=== PATIENT | female | born 1970 | race American Indian/Alaskan Native ===

== ENCOUNTER 2018-12-04 20:09 | Inpatient (IN) | payer MEDICAID ==
[2018-12-04] MEDS ORDERED: ZOFRAN IV ONE (20:36)
[2018-12-04] MEDS ORDERED: SUBLIMAZE IV ONE (20:36)
--- NOTE | 2018-12-04 20:39 | Emergency Department Report ---
ED Abdominal Pain HPI - General Chief Complaint: Abdominal Pain Stated Complaint: ABDOMINAL PAIN Time Seen by Provider: 12/04/18 20:31 Source: patient, EMS Mode of arrival: Stretcher Limitations: Physical Limitation - History of Present Illness Initial Comments: Patient is 48-year-old female with history of asthma, bipolar and pancreatitis secondary to alcohol. Patient presented to the ER complaining of upper abdominal pain that radiated to her back. Pain is sharp in nature. Pain associated with nausea and vomiting. Pain is 10 out of 10. Patient denied any diarrhea, fever or dysuria. MD Complaint: abdominal pain -: This morning Location: epigastric Radiation: back Migration to: no migration Severity scale (0 -10): 10 Quality: sharp Consistency: constant - Related Data Home Medications Medication Instructions Recorded Confirmed Last Taken ALPRAZolam [Xanax TAB] 2 mg PO BID 04/25/18 04/25/18 Unknown Carisoprodol [Soma] 350 mg PO BID 04/25/18 04/25/18 Unknown Allergies Allergy/AdvReac Type Severity Reaction Status Date / Time No Known Allergies Allergy Unverified 12/30/14 00:27 ED Review of Systems ROS: Stated complaint: ABDOMINAL PAIN Other details as noted in HPI Comment: All other systems reviewed and negative Constitutional: denies: chills, fever Respiratory: denies: cough, orthopnea, shortness of breath, SOB with exertion, SOB at rest Gastrointestinal: abdominal pain, nausea, vomiting. denies: diarrhea, co nstipation, hematemesis, melena, hematochezia Musculoskeletal: denies: back pain Skin: denies: rash, lesions Neurological: denies: headache, weakness Psychiatric: denies: as per HPI ED Past Medical Hx - Past Medical History Hx Psychiatric Treatment: Yes (bipolar) Hx Asthma: Yes Hx COPD: No Additional medical history: pancreatitis - Surgical History Additional Surgical History: x 3. left shoulder surgery - Social History Smoking Status: Current Every Day Smoker Substance Use Type: Alcohol - Medications Home Medications: Home Medications Medication Instructions Recorded Confirmed Last Taken Type ALPRAZolam [Xanax TAB] 2 mg PO BID 04/25/18 04/25/18 Unknown History Carisoprodol [Soma] 350 mg PO BID 04/25/18 04/25/18 Unknown History ED Physical Exam - General Limitations: Physical Limitation General appearance: alert, in distress (secondary to pain) - Head Head exam: Present: atraumatic, normocephalic, normal inspection - Eye Eye exam: Present: normal appearance, PERRL - ENT ENT exam: Present: normal exam, normal orophraynx, mucous membranes moist - Neck Neck exam: Present: normal inspection. Absent: tenderness, meningismus - Respiratory Respiratory exam: Present: normal lung sounds bilaterally - Cardiovascular Cardiovascular Exam: Present: regular rate, normal rhythm, normal heart sounds - GI/Abdominal GI/Abdominal exam: Present: soft, tenderness, normal bowel sounds. Absent: distended, guarding, rebound, rigid, organomegaly, mass, bruit, pulsatile mass, hernia - Back Exam Back exam: Present: normal inspection, full ROM. Absent: tenderness, CVA tenderness (R), CVA tenderness (L), muscle spasm, paraspinal tenderness, vertebral tenderness - Neurological Exam Neurological exam: Present: alert, oriented X3, CN II-XII intact, normal gait - Skin Skin exam: Present: warm, intact, normal color ED Course Vital Signs 12/04/18 12/04/18 12/04/18 20:14 21:00 22:00 Pulse Rate 98 H 94 H 106 H Respiratory 20 25 H 19 Rate Blood Pressure 171/126 157/115 161/105 O2 Sat by Pulse 98 98 99 Oximetry 12/04/18 22:15 Pulse Rate Respiratory 18 Rate Blood Pressure O2 Sat by Pulse Oximetry ED Medical Decision Making - Lab Data Result diagrams: 12/04/18 20:18 12/04/18 20:18 - Radiology Data Radiology results: image reviewed interpreted by me: X-ray abdominal series is negative for acute finding. - Medical Decision Making Patient is 48-year-old female with history of asthma, bipolar and pancreatitis secondary to alcohol. Patient presented to the ER complaining of upper abdominal pain that radiated to her back. Pain is sharp in nature. Pain associated with nausea and vomiting. Pain is 10 out of 10. Patient denied any diarrhea, fever or dysuria. I discussed the patient is Raza Barnes agreed to admit the patient to medical service. Critical care attestation.: If time is entered above; I have spent that time in minutes in the direct care of this critically ill patient, excluding procedure time. ED Disposition Clinical Impression: Acute pancreatitis, Abdominal pain Disposition: OP ADMIT IP TO THIS HOSP Is pt being admited?: Yes Condition: Stable Instructions: Abdominal Pain (ED)
[2018-12-04] MEDS ORDERED: SUBLIMAZE ONE (20:42)
[2018-12-04] MEDS ORDERED: MORPHINE IV ONE (21:11)
[2018-12-04 21:28] LABS: Basophils % (Auto) 0.1 % (0.0-1.8); Eosinophils # (Auto) 0.1 K/mm3 (0.0-0.4); Eosinophils % (Auto) 0.8 % (0.0-4.3); Hematocrit 40.2 % (30.3-42.9); Hemoglobin 13.3 gm/dl (10.1-14.3); Lymphocytes # (Auto) 1.6 K/mm3 (1.2-5.4); Lymphocytes % (Auto) 20.7 % (13.4-35.0); Mean Corpuscular HGB Conc 33 % (30-34); Mean Corpuscular Volume 89 fl (79-97); Monocytes # (Auto) 0.7 K/mm3 (0.0-0.8); Monocytes % (Auto) 8.6 % (0.0-7.3); Platelet Count 241 K/mm3 (140-440); Red Blood Count 4.49 M/mm3 (3.65-5.03)
[2018-12-04 21:45] LABS: Alanine Aminotransferase 18 units/L (7-56); BUN/Creatinine Ratio 13; Blood Urea Nitrogen 4 mg/dL (7-17); Calcium 8.6 mg/dL (8.4-10.2); Hemolysis Index 8
[2018-12-04] MEDS ORDERED: TORADOL IV ONE (22:03)
[2018-12-04] MEDS ORDERED: ZOFRAN IV PRN (23:27)
[2018-12-04] MEDS ORDERED: TYLENOL PO PRN (23:27)
[2018-12-04] MEDS ORDERED: MORPHINE IV PRN (23:27)
--- NOTE | 2018-12-04 23:27 | XRay Report ---
PROCEDURE: XR ABD SERIES W CXR 1V TECHNIQUE: Abdominal series complete, including supine and upright AP views of the abdomen and front al chest. HISTORY: abdominal pain COMPARISONS: None . FINDINGS: Intestinal gas is distributed predominantly in nondistended colon and rectum. There are no abnormal c alcifications or foreign bodies. No evidence of organomegaly is noted. A 1.5 cm irregular nodular den sity noted in the right lower hemithorax most likely represents a nipple shadow. Otherwise bilateral lungs and pleural spaces are clear. Cardiac size is within normal limits. IMPRESSION: Nonspecific intestinal gas pattern. A small right hemithorax nodular density most likely represents a nipple shadow. A follow-up chest x- ray with nipple markers is recommended. This document is electronically signed by Tani Castillo MD., December 04 2018 11:25:16 PM ET
--- NOTE | 2018-12-04 23:29 | History and Physical Report ---
History of Present Illness Date of examination: 12/04/18 History of present illness: 48-year-old woman with a history of bipolar, pancreatitis comes emergency room with complaints of abdominal pain. Pain is into epigastric, left upper quadrant which she described as a hurting pain, radiating to the back, intensity 8/10, constant, relieved with pain medication. Admits to nausea vomiting Review of systems Constitutional: no weight loss, chills, fever Ears, eyes, nose, mouth and throat: no nasal congestion, no nasal discharge, no sinus pressure, no vision change, no red eye. Neck: No neck pain or rigidity. Cardiovascular: no palpitations, chest pain Respiratory: no cough, shortness of breath Gastrointestinal: no hematochezia, +abdominal pain Genitourinary : no frequency , no hematuria Musculoskeletal: no joint swelling or muscle ache Integumentary: no rash, no pruritis Neurological: no parathesias, no focal weakness Endocrine: no cold or heat intolerance, no polyuria or polydipsia Hematologic/Lymphatic: no easy bruising, no easy bleeding, no gland swelling Allergic/Immunologic: no urticaria, no angioedema. PAST MEDICAL HISTORY:bipolar, pancreatitis PAST SURGICAL HISTORY: 2, left shoulder SOCIAL HISTORY+ alcohol, drugs, tobacco FAMILY HISTORY: Hypertension Medications and Allergies Allergies Allergy/AdvReac Type Severity Reaction Status Date / Time No Known Allergies Allergy Unverified 12/30/14 00:27 Home Medications Medication Instructions Recorded Confirmed Last Taken Type ALPRAZolam [Xanax TAB] 2 mg PO BID 04/25/18 12/05/18 Unknown History Carisoprodol [Soma] 350 mg PO BID 04/25/18 12/05/18 Unknown History Oxycodone HCl/Acetaminophen 1 tab PO DAILY PRN 12/05/18 12/05/18 Unknown History [Percocet 10/325 mg] ALBUTEROL Inhaler(NF) 1 inhalation INHALATION DAILY 12/06/18 12/06/18 Unknown History Ibuprofen [Motrin] 800 mg PO Q8HR PRN #4 tablet 12/07/18 Unknown Rx Pantoprazole [Protonix] 40 mg PO QDAY #4 tablet 12/07/18 Unknown Rx Exam - Physical Exam Narrative exam: General Apperance: The patient lying in bed, breathing comfortable HEENT: Normocephalic, atraumatic. Pupils equally round and reactive to light, EOMI, no sclericterus or JVD or thyromegaly or nodule. , no carotid bruit, mucous membranes moist, no exudate or erythema Heart: S1-S2, regular is rhythm Lungs: Clear to auscultation bilaterally, breathing comfortable Abdomen: Positive bowel sounds, soft, tender in epigastric, left upper quadrant, nondistended, no organomegaly Extremities: No edema cyanosis clubbing Skin: no rash, nodule, warm and dry Neuro: cranial nerves 2-12 intact, speech is fluent, motor/sensory intact - Constitutional Vitals: Temp Pulse Resp BP Pulse Ox 106 H 18 161/105 99 12/04/18 22:00 12/04/18 22:15 12/04/18 22:00 12/04/18 22:00 Results - Labs CBC & Chem 7: 12/07/18 04:34 12/07/18 04:34 Labs: Abnormal lab results 12/04/18 12/04/18 Range/Units 20:18 20:18 [place] % (Auto) 8.6 H (0.0-7.3) % Potassium 3.4 L (3.6-5.0) mmol/L BUN 4 L (7-17) mg/dL Creatinine 0.3 L (0.7-1.2) mg/dL Glucose 113 H (65-100) mg/dL Lipase 568 H (13-60) units/L - Imaging and Cardiology Chest x-ray: report reviewed Abdominal x-ray: report reviewed Assessment and Plan Assessment Hepatitis secondary to alcohol abuse Bipolar Alcohol abuse Admit to medicine Start IV fluid, IV morphine, bowel rest DVT prophylaxis
[2018-12-04] MEDS ORDERED: NACL 0.45% 1000 ML 1,000 ML IV SCH (23:45)
[2018-12-05] MEDS ORDERED: K-DUR PO ONE ×2 (00:46→01:11)
[2018-12-05] MEDS: DILAUDID IV PRN ×6 (03:55→22:32)
[2018-12-05 06:30] LABS: Basophils % (Auto) 0.3 % (0.0-1.8); Eosinophils # (Auto) 0.1 K/mm3 (0.0-0.4); Hematocrit 37.1 % (30.3-42.9); Hemoglobin 12.5 gm/dl (10.1-14.3); Lymphocytes # (Auto) 1.6 K/mm3 (1.2-5.4); Lymphocytes % (Auto) 29.1 % (13.4-35.0); Mean Corpuscular HGB Conc 34 % (30-34); Mean Corpuscular Volume 89 fl (79-97); Monocytes # (Auto) 0.5 K/mm3 (0.0-0.8); Monocytes % (Auto) 9.9 % (0.0-7.3); Platelet Count 201 K/mm3 (140-440); Red Blood Count 4.16 M/mm3 (3.65-5.03); Red Cell Distribution Width 14.9 % (13.2-15.2)
[2018-12-05 07:17] LABS: BUN/Creatinine Ratio 17; Blood Urea Nitrogen 5 mg/dL (7-17); Calcium 8.3 mg/dL (8.4-10.2); Hemolysis Index 5
[2018-12-05] MEDS ORDERED: HALDOL IV PRN (07:38)
[2018-12-05] MEDS ORDERED: ATIVAN IV PRN (07:38)
--- NOTE | 2018-12-05 07:40 | Progress Note ---
Assessment and Plan Assessment and plan: Patient is a 48 yo man with a history of alcohol abuse, pancreatitis, bipolar disorder and tobacco dependency who presents with abdominal pains. Lipase 568. -Acute Recurrent Alcohol pancreatitis: ivf, bowel rest/npo, iv pain medications -Hypokalemia: replace and recheck -Tobacco dependency: counselor aide on stopping, offer nicotine patch -Alcohol dependency: watch for withdrawal, add CIWA protocol get CT abd/pelvis stat with IV contrast History Interval history: Patient was seen and examined. Follow-up on current diagnosis of abdominal pains. Overnight uneventful. Patient denies any chest pain, shortness breath, nausea/vomiting or severe headaches. Imaging, nursing note, chart, labs and old chart reviewed. Discussed with patient. Hospitalist Physical - Physical exam Narrative exam: Gen: WDWN, NAD, Awake, Alert, Orientated HEENT: NCAT, EOMI, PERRL, OP Clear Neck: supple, no adenopathy, no thyromegaly, no JVD CVS/Heart: RRR, normal S1S2, pulses present bilaterally Chest/Lungs: CTA B, Symmetrical chest expansion, good air entry bilaterally GI/Abdomen: soft, epigastric tenderness, good bowel sounds, no guarding or rebound /Bladder: no suprapubic tenderness, no CVA or paraspinal tenderness Extermity/Skin: no c/c/e, no obvious rash MSK: FROM x 4 Neuro: CN 2-12 grossly intact, no new focal deficits Psych: calm - Constitutional Vitals: Temp Pulse Resp BP Pulse Ox 98.4 F 103 H 24 125/86 99 12/05/18 04:50 12/05/18 04:50 12/05/18 04:50 12/05/18 04:50 12/05/18 04:50 Results - Labs CBC & Chem 7: 12/05/18 06:01 12/05/18 06:01 Labs: Laboratory Last Values WBC 5.5 K/mm3 (4.5-11.0) 12/05/18 06:01 RBC 4.16 M/mm3 (3.65-5.03) 12/05/18 06:01 Hgb 12.5 gm/dl (10.1-14.3) 12/05/18 06:01 Hct 37.1 % (30.3-42.9) 12/05/18 06:01 MCV 89 fl (79-97) 12/05/18 06:01 MCH 30 pg (28-32) 12/05/18 06:01 MCHC 34 % (30-34) 12/05/18 06:01 RDW 14.9 % (13.2-15.2) 12/05/18 06:01 Plt Count 201 K/mm3 (140-440) 12/05/18 06:01 Lymph % (Auto) 29.1 % (13.4-35.0) 12/05/18 06:01 [place] % (Auto) 9.9 % (0.0-7.3) H 12/05/18 06:01 Eos % (Auto) 1.0 % (0.0-4.3) 12/05/18 06:01 Baso % (Auto) 0.3 % (0.0-1.8) 12/05/18 06:01 Lymph # 1.6 K/mm3 (1.2-5.4) 12/05/18 06:01 [place] # 0.5 K/mm3 (0.0-0.8) 12/05/18 06:01 Eos # 0.1 K/mm3 (0.0-0.4) 12/05/18 06:01 Baso # 0.0 K/mm3 (0.0-0.1) 12/05/18 06:01 Seg Neutrophils % 59.7 % (40.0-70.0) 12/05/18 06:01 Seg Neutrophils # 3.3 K/mm3 (1.8-7.7) 12/05/18 06:01 Sodium 139 mmol/L (137-145) 12/05/18 06:01 Potassium 3.4 mmol/L (3.6-5.0) L 12/05/18 06:01 Chloride 106.6 mmol/L (98-107) 12/05/18 06:01 Carbon Dioxide 22 mmol/L (22-30) 12/05/18 06:01 Anion Gap 14 mmol/L 12/05/18 06:01 BUN 5 mg/dL (7-17) L 12/05/18 06:01 Creatinine 0.3 mg/dL (0.7-1.2) L 12/05/18 06:01 Estimated GFR > 60 ml/min 12/05/18 06:01 BUN/Creatinine Ratio 17 % 12/05/18 06:01 Glucose 106 mg/dL (65-100) H 12/05/18 06:01 Calcium 8.3 mg/dL (8.4-10.2) L 12/05/18 06:01 Total Bilirubin 0.70 mg/dL (0.1-1.2) 12/04/18 20:18 AST 27 units/L (5-40) 12/04/18 20:18 ALT 18 units/L (7-56) 12/04/18 20:18 Alkaline Phosphatase 57 units/L (35-129) 12/04/18 20:18 Total Protein 7.1 g/dL (6.3-8.2) 12/04/18 20:18 Albumin 4.0 g/dL (3.9-5) 12/04/18 20:18 Albumin/Globulin Ratio 1.3 % 12/04/18 20:18 Lipase 568 units/L (13-60) H 12/04/18 20:18 HCG, Qual Negative (Negative) 12/04/18 20:18
[2018-12-05] MEDS ORDERED: NACL 0.45% 1000 ML 1,000 ML with KCL 20 MEQ IV SCH (08:00)
[2018-12-05] MEDS: ATIVAN IV PRN ×2 (08:49→14:12)
[2018-12-05] MEDS ORDERED: LOVENOX SUB-Q SCH (10:00)
[2018-12-05] MEDS: LOVENOX SUB-Q SCH (10:16)
[2018-12-05] MEDS: SODIUM CHLORIDE FLUSH SYRINGE 10 ML IV SCH ×2 (10:17→22:33)
[2018-12-05] MEDS: NS 0.45/KCL 20MEQ 20 MEQ/1,000 ML BAG IV SCH (14:49)
--- NOTE | 2018-12-05 19:14 | Cat Scan Report ---
PROCEDURE: CT ABDOMEN PELVIS W CON TECHNIQUE: Axial images were performed from the lung bases to the pubic symphysis. Multiplanar reformats were performed on the acquisition scanner. Total exam DLP 1004 at 6.22 mGy-centimeter HISTORY: severe abd pains COMPARISONS: Plain film series 12/04/2018 FINDINGS: Clear lung bases. Mildly fatty infiltrated and mildly enlarged liver. Ill-defined posterior segment right lobe liver vásquez bcapsular 1.1 cm hypodensity incompletely characterized. Otherwise, normal enhancement appearance of the liver, spleen, pancreas, gallbladder, bilateral adren al glands and bilateral kidneys. Stomach is moderately distended. There is nonspecific perinephric/retroperitoneal stranding. The epicenter appears to be in the bony pelvis. Urinary bladder is moderately distended and thick-wal led. A tampon is present. Normal anteverted uterus. Moderate free pelvic fluid. Moderate diffuse fecal retention. Ill-defined soft tissue density in the posterior subhepatic space, renal fossil co-owns, left paracol ic gutter with trace fluid and mild free fluid in the left paracolic gutter. Delayed phase images demonstrate this diffuse peritoneal soft tissue increased density. No delay in c ontrast excretion from the kidneys. Normal appearance of the urinary bladder. Imaged axial skeleton is unremarkable. Coronal reconstructed images demonstrate ill-defined increased density in the mesenteric leaves and a long the vascular channels in the central abdomen. There is ill-defined fluid in the retroperitoneal space of the pancreatic uncinate. Portal vein is patent. Hepatic artery and hepatic veins are patent. IMPRESSION: Ill-defined peritoneal and retroperitoneal soft tissue reticulation with mild free fluid suggestive o f an inflammatory process such as peritonitis. Epicenter may be in the bony pelvis. Urinary bladder i s thick-walled. There is moderate free pelvic fluid, some with slightly increased density. There is a tampon present. Correlate with pelvic exam for pelvic inflammatory disease. No tubo-ovaria n abscess is identified. Also correlate with urinalysis. The kidneys enhance normally. No evidence for pyelonephritis.. Incompletely characterized posterior segment right lobe liver subcapsular hypodense 1.3 cm lesion thi s may represent a subcapsular cyst and can be followed up by ultrasound. This document is electronically signed by Deanna Espinoza MD., December 05 2018 07:11:30 PM ET
[2018-12-05] MEDS: ZOSYN/NS 4.5GM/100ML 4.5 GM/100 ML VIAL IV SCH (22:32)
[2018-12-06] MEDS: ATIVAN IV PRN ×4 (00:17→22:20)
[2018-12-06] MEDS: SODIUM CHLORIDE FLUSH SYRINGE 10 ML IV PRN ×4 (00:18→06:42)
[2018-12-06] MEDS: DILAUDID IV PRN ×6 (01:45→20:57)
[2018-12-06] MEDS: NS 0.45/KCL 20MEQ 20 MEQ/1,000 ML BAG IV SCH (01:45)
[2018-12-06 05:44] LABS: Hematocrit 37.8 % (30.3-42.9); Hemoglobin 12.7 gm/dl (10.1-14.3); Mean Corpuscular HGB Conc 34 % (30-34); Mean Corpuscular Volume 89 fl (79-97); Platelet Count 193 K/mm3 (140-440); Red Blood Count 4.26 M/mm3 (3.65-5.03); Red Cell Distribution Width 14.9 % (13.2-15.2)
[2018-12-06 06:01] LABS: BUN/Creatinine Ratio 8; Blood Urea Nitrogen 3 mg/dL (7-17); Calcium 8.4 mg/dL (8.4-10.2); Hemolysis Index 32
[2018-12-06] MEDS: ZOSYN/NS 4.5GM/100ML 4.5 GM/100 ML VIAL IV SCH ×2 (06:41→14:11)
[2018-12-06] MEDS: LOVENOX SUB-Q SCH (10:39)
[2018-12-06] MEDS: SODIUM CHLORIDE FLUSH SYRINGE 10 ML IV SCH ×2 (14:11→21:14)
[2018-12-06] MEDS: KCL 10MEQ/100ML 10 MEQ/100 ML BAG IV SCH ×2 (14:14→17:08)
--- NOTE | 2018-12-06 14:47 | Consultation ---
History of Present Illness Consult date: 12/06/18 Reason for consult: abdominal pain Chief complaint: abdominal pain - History of present illness History of present illness: 47 yo F with hx of HTN, recurrent pancreatitis presents to ER with c/o severe ep igastric abdominal pain radiating to bilateral upper quadrants, which started 2 days ago. This pain is sharp and is only alleviated by IV narcotic pain medications given in the hospital. She also admits to nonbilious/nonbloody emesis. patient has been hospitalized for pancreatitis multiple times. She was last admitted to [facility] in April 2018 and prior to this at [place]. her w/u at [place] was negative and pancreatitis thought to be due to etoh. She admits to social etoh use, drinking multiple alcoholic beverages 3x per week. She denies recent travel, sick contacts, or change in medications. No f/c, cp, sob, c/d. She is hungry and asking for something to drink. Pt is currently menstruating. She states she has been changing her tampons regularly. No pelvic pain Past History Past Medical History: hypertension, other (pancreatitis, anxiety) Past Surgical History: (x3) Social history: alcohol abuse Family history: no significant family history Medications and Allergies Allergies Allergy/AdvReac Type Severity Reaction Status Date / Time No Known Allergies Allergy Unverified 12/30/14 00:27 Home Medications Medication Instructions Recorded Confirmed Last Taken Type ALPRAZolam [Xanax TAB] 2 mg PO BID 04/25/18 12/05/18 Unknown History Carisoprodol [Soma] 350 mg PO BID 04/25/18 12/05/18 Unknown History Oxycodone HCl/Acetaminophen 1 tab PO DAILY PRN 12/05/18 12/05/18 Unknown History [Percocet 10/325 mg] Active Meds: Active Medications Acetaminophen (Tylenol) 650 mg PO Q4H PRN PRN Reason: Pain MILD(1-3)/Fever >100.5/RAMOS Enoxaparin Sodium (Lovenox) 40 mg SUB-Q QDAY@1000 DOLORES Last Admin: 12/06/18 10:39 Dose: 40 mg Documented by: Haloperidol Lactate (Haldol) 5 mg IV Q1H PRN PRN Reason: Unrespon. to mult. doses BZD's Hydromorphone HCl (Dilaudid) 1 mg IV Q3H PRN PRN Reason: Pain , Severe (7-10) Last Admin: 12/06/18 14:09 Dose: 1 mg Documented by: Potassium Chloride/Sodium Chloride (Ns 0.45/Kcl 20meq) 20 meq in 1,000 mls @ 100 mls/hr IV DIRECT DOLORES Last Admin: 12/06/18 01:45 Dose: 100 mls/hr Documented by: Piperacillin Sod/Tazobactam Sod (Zosyn/Ns 4.5gm/100ml) 4.5 gm in 100 mls @ 200 mls/hr IV Q8HR DOLORES; Protocol Last Admin: 12/06/18 14:11 Dose: 200 mls/hr Documented by: Potassium Chloride (Kcl 10meq/100ml) 10 meq in 100 mls @ 100 mls/hr IV Q1H DOLORES Stop: 12/06/18 14:59 Last Admin: 12/06/18 14:14 Dose: 100 mls/hr Documented by: Lorazepam (Ativan) 1 mg IV Q1H PRN PRN Reason: CIWA-Ar 8-15 Last Admin: 12/06/18 06:42 Dose: 1 mg Documented by: Lorazepam (Ativan) 2 mg IV Q1H PRN PRN Reason: CIWA-Ar 16-25 Sodium Chloride (Sodium Chloride Flush Syringe 10 Ml) 10 ml IV BID DOLORES Last Admin: 12/06/18 14:11 Dose: 10 ml Documented by: Sodium Chloride (Sodium Chloride Flush Syringe 10 Ml) 10 ml IV PRN PRN PRN Reason: LINE FLUSH Last Admin: 12/06/18 06:42 Dose: 10 ml Documented by: Review of Systems All systems: negative (10 pt ROS performed and negative except for that listed in HPI) Exam Vital Signs Pulse Resp BP Pulse Ox 98 H 20 171/126 98 12/04/18 20:14 12/04/18 20:14 12/04/18 20:14 12/04/18 20:14 Narrative exam: Gen: AAOx3. NAD ENT: no scleral icterus or conjunctival pallor CV: s1, s2+ resp; even and unlabored Abd: soft, ND, epigastric TTP. no r/r/g. No TTP in pelvic area or lower quadrants Ext: no c/c/e Results - Labs 12/06/18 05:10 12/06/18 05:10 Abnormal lab results 12/06/18 12/06/18 Range/Units 05:10 05:10 Sodium 136 L (137-145) mmol/L Potassium 3.4 L (3.6-5.0) mmol/L Carbon Dioxide 20 L (22-30) mmol/L BUN 3 L (7-17) mg/dL Creatinine 0.4 L (0.7-1.2) mg/dL Glucose 151 H (65-100) mg/dL Lipase 537 H (13-60) units/L Diabetes panel 12/06/18 Range/Units 05:10 Sodium 136 L (137-145) mmol/L Potassium 3.4 L (3.6-5.0) mmol/L Chloride 102.1 (98-107) mmol/L Carbon Dioxide 20 L (22-30) mmol/L BUN 3 L (7-17) mg/dL Creatinine 0.4 L (0.7-1.2) mg/dL Glucose 151 H (65-100) mg/dL Calcium 8.4 (8.4-10.2) mg/dL Calcium panel 12/06/18 Range/Units 05:10 Calcium 8.4 (8.4-10.2) mg/dL Pituitary panel 12/06/18 Range/Units 05:10 Sodium 136 L (137-145) mmol/L Potassium 3.4 L (3.6-5.0) mmol/L Chloride 102.1 (98-107) mmol/L Carbon Dioxide 20 L (22-30) mmol/L BUN 3 L (7-17) mg/dL Creatinine 0.4 L (0.7-1.2) mg/dL Glucose 151 H (65-100) mg/dL Calcium 8.4 (8.4-10.2) mg/dL Adrenal panel 12/06/18 Range/Units 05:10 Sodium 136 L (137-145) mmol/L Potassium 3.4 L (3.6-5.0) mmol/L Chloride 102.1 (98-107) mmol/L Carbon Dioxide 20 L (22-30) mmol/L BUN 3 L (7-17) mg/dL Creatinine 0.4 L (0.7-1.2) mg/dL Glucose 151 H (65-100) mg/dL Calcium 8.4 (8.4-10.2) mg/dL - Imaging CT scan - abdomen: report reviewed, image reviewed CT scan - pelvis: report reviewed, image reviewed Assessment and Plan 48 yo F with pancreatitis likely secondary to etoh Abd u/s and triglycerides in April [address] scan A/P - free fluid in pelvis. radiology impression: "Ill defined peritoneal and retroperitoneal soft tissue reticulation with mild free fluid suggestive of inflammatory process such as peritonitis. Epicenter may be in bony pelvis . urinary bladder is thick walled . There is moderate free pelvic fluid, with slightly increased density" Plan: Ct A/P read does not correlate with patient's hx, physical exam, labs. Free fluid and findings of inflammation may be associated with pancreatitis vs thick walled urinary bladder. 1. clear liquid diet 2. IVF 3. trend lipase 4. prn pain control, avoid narcotics 5. etoh cessation discussed with patient 6. UA 7. referral to pain management as outpatient D/W Dr. Meade. Thank you, please call with questions.
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
[2018-12-06] MEDS ORDERED: POTASSIUM CHLORIDE PO ONE (17:00)
[2018-12-06] MEDS: NACL 0.9% 1000 ML 1,000 ML IV SCH (17:07)
[2018-12-07] MEDS: DILAUDID IV PRN ×4 (00:20→10:27)
[2018-12-07] MEDS: NACL 0.9% 1000 ML 1,000 ML IV SCH (03:12)
[2018-12-07] MEDS: ATIVAN IV PRN ×2 (03:15→13:01)
[2018-12-07 04:45] LABS: Bilirubin,Urine NEG (Negative); Blood,Urine NEG (Negative); Color,Urine Straw (Yellow); Protein,Urine <15 mg/dL mg/dL (Negative); Urobilinogen,Urine < 2.0 mg/dL (<2.0)
[2018-12-07 05:43] LABS: Hematocrit 37.3 % (30.3-42.9); Hemoglobin 12.2 gm/dl (10.1-14.3); Mean Corpuscular HGB Conc 33 % (30-34); Mean Corpuscular Volume 90 fl (79-97); Platelet Count 203 K/mm3 (140-440); Red Blood Count 4.16 M/mm3 (3.65-5.03); Red Cell Distribution Width 14.9 % (13.2-15.2)
[2018-12-07 06:08] LABS: Alanine Aminotransferase 11 units/L (7-56); Albumin 3.6 g/dL (3.9-5); Calcium 8.6 mg/dL (8.4-10.2); Hemolysis Index 0
[2018-12-07 06:11] LABS: BUN/Creatinine Ratio 3; Blood Urea Nitrogen < 1 mg/dL (7-17)
[2018-12-07] MEDS: LOVENOX SUB-Q SCH (10:28)
[2018-12-07] MEDS: SODIUM CHLORIDE FLUSH SYRINGE 10 ML IV SCH (10:28)
[2018-12-07] MEDS ORDERED: COLACE PO SCH (12:00)
[2018-12-07] MEDS ORDERED: MIRALAX 3350 PO SCH (12:00)
--- NOTE | 2018-12-07 12:07 | Progress Note ---
Assessment and Plan 48 yo F with pancreatitis likely secondary to etoh Abd u/s and triglycerides in April [address] scan A/P - free fluid in pelvis. radiology impression: "Ill defined peritoneal and retroperitoneal soft tissue reticulation with mild free fluid suggestive of inflammatory process such as peritonitis. Epicenter may be in bony pelvis . urinary bladder is thick walled . There is moderate free pelvic fluid, with slightly increased density" Plan: Pt improving clinically and lipase is trending down 1. adv to reg diet 2. IVF 3. prn pain control, avoid narcotics. Pt with many narcotic RX over the last month 5. etoh cessation discussed with patient again and stressed the importance of this with her 6. referral to pain management as outpatient Ok to co home from surgery standpoint D/W Dr. Meade. Thank you, please call with questions. Subjective Date of service: 12/07/18 Narrative: Pt seen and examined. No abdominal pain. No n/v, f/c, cp, sob. States she is starving. Objective Vital Signs - 12hr 12/07/18 12/07/18 12/07/18 00:20 00:50 03:30 Temperature Pulse Rate Respiratory 17 17 17 Rate Blood Pressure O2 Sat by Pulse Oximetry 12/07/18 12/07/18 12/07/18 04:00 05:48 06:58 Temperature 98.2 F Pulse Rate 75 Respiratory 17 20 17 Rate Blood Pressure 145/97 O2 Sat by Pulse 100 Oximetry 12/07/18 12/07/18 07:28 10:27 Temperature Pulse Rate Respiratory 16 20 Rate Blood Pressure O2 Sat by Pulse Oximetry - General physical appearance Narrative Exam: Gen: AAOx3. NAD CV: s1, S2+ resp: even and unlabored Abd: soft, NT, ND Ext: no c/c/e - Labs 12/07/18 04:34 12/07/18 04:34 Diabetes panel 12/07/18 Range/Units 04:34 Sodium 139 (137-145) mmol/L Potassium 3.8 (3.6-5.0) mmol/L Chloride 106.7 (98-107) mmol/L Carbon Dioxide 23 (22-30) mmol/L BUN < 1 L (7-17) mg/dL Creatinine 0.3 L (0.7-1.2) mg/dL Glucose 111 H (65-100) mg/dL Calcium 8.6 (8.4-10.2) mg/dL AST 13 (5-40) units/L ALT 11 (7-56) units/L Alkaline Phosphatase 48 (35-129) units/L Total Protein 6.6 (6.3-8.2) g/dL Albumin 3.6 L (3.9-5) g/dL Calcium panel 12/07/18 Range/Units 04:34 Calcium 8.6 (8.4-10.2) mg/dL Albumin 3.6 L (3.9-5) g/dL Pituitary panel 12/07/18 Range/Units 04:34 Sodium 139 (137-145) mmol/L Potassium 3.8 (3.6-5.0) mmol/L Chloride 106.7 (98-107) mmol/L Carbon Dioxide 23 (22-30) mmol/L BUN < 1 L (7-17) mg/dL Creatinine 0.3 L (0.7-1.2) mg/dL Glucose 111 H (65-100) mg/dL Calcium 8.6 (8.4-10.2) mg/dL Adrenal panel 12/07/18 Range/Units 04:34 Sodium 139 (137-145) mmol/L Potassium 3.8 (3.6-5.0) mmol/L Chloride 106.7 (98-107) mmol/L Carbon Dioxide 23 (22-30) mmol/L BUN < 1 L (7-17) mg/dL Creatinine 0.3 L (0.7-1.2) mg/dL Glucose 111 H (65-100) mg/dL Calcium 8.6 (8.4-10.2) mg/dL Total Bilirubin 0.30 (0.1-1.2) mg/dL AST 13 (5-40) units/L ALT 11 (7-56) units/L Alkaline Phosphatase 48 (35-129) units/L Total Protein 6.6 (6.3-8.2) g/dL Albumin 3.6 L (3.9-5) g/dL
[2018-12-07 12:35] VITALS: BP 135/95
--- NOTE | 2018-12-07 16:17 | Discharge Summary ---
Providers - Providers Date of Admission: 12/04/18 23:27 Date of discharge: 12/07/18 Attending physician: BENI MOJICA 12/05/18 20:22 Consult to Physician [CONS] Routine Comment: Consulting Provider: CARINA ISABEL Physician Instructions: Reason For Exam: peritonitis Primary care physician: ALVA MONTENEGRO Hospitalization Condition: Stable Hospital course: Patient is a 48 yo woman with a history of alcohol abuse, pancreatitis, bipolar disorder and tobacco dependency who presents with abdominal pains. Lipase 568. 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 I did not understand the CT abd/pelvis reading and wanted GS to review the imaging which Dr. Isabel did and concluded this is mainly pancreatitis so I stopped iv zosyn. Advance diet and pt tolerated. [place] coffee sampler aware: Patient filled a perscriptions from Dr. Mario Gupta of 90 tabs of percocet 10/325 on 11/22/18 and 60 tab of Soma. Also, patient received 50 tabs of Xanax 2mg on 11/20/[address] Bj Fagan. She also received 90 tabs of percocet 10/[address] Mario Gupta on 10/26/18 along with 60 tabs fo Soma on 10/26/18. Patient is asking for more narcotics to go home. I declined. Disposition: DC-01 TO HOME OR SELFCARE Time spent for discharge: 36 minutes Core Measure Documentation - Palliative Care Palliative Care/ Comfort Measures: Not Applicable - Core Measures Any of the following diagnoses?: none - VTE Discharge Requirements Deep Vein Thrombosis/Pulmonary Embolism Present on Admission: No Has pt received <5 days of overlap therapy or INR<2.0: No Anticoagulant overlap therapy prescribed at discharge: No Contraindication No Overlap Therapy order at DC: Not Indicated Exam - Physical Exam Narrative exam: Gen: WDWN, NAD, Awake, Alert, Orientated HEENT: NCAT, EOMI, PERRL, OP Clear Neck: supple, no adenopathy, no thyromegaly, no JVD CVS/Heart: RRR, normal S1S2, pulses present bilaterally Chest/Lungs: CTA B, Symmetrical chest expansion, good air entry bilaterally GI/Abdomen: soft, resolved epigastric tenderness, good bowel sounds, no guarding or rebound /Bladder: no suprapubic tenderness, no CVA or paraspinal tenderness Extermity/Skin: no c/c/e, no obvious rash MSK: FROM x 4 Neuro: CN 2-12 grossly intact, no new focal deficits Psych: calm - Constitutional Vitals: Temp Pulse Resp BP Pulse Ox 98.4 F 79 20 135/95 96 12/07/18 12:34 12/07/18 12:35 12/07/18 12:34 12/07/18 12:34 12/07/18 12:35 Plan Activity: other (no strenous activity) Diet: clear liquids, advance as tolerated Follow up with: ALVA MONTENEGRO MD [Primary Care Provider] - 7 Days CARINA ISABEL DO [Staff Physician] - 7 Days KALLI MORGAN MD [Staff Physician] - 7 Days Prescriptions: Ibuprofen [Motrin] 800 mg PO Q8HR PRN #4 tablet PRN Reason: Pain , Severe (7-10) Pantoprazole [Protonix] 40 mg PO QDAY #4 tablet
== END 2018-12-07 18:45 | disposition home or self-care (01) | DRG 440 ==
LOC: ED 20:09 → 3A 23:27
PROVIDERS: ADMIT Internal Medicine; ATTEND Internal Medicine
DX: K85.20 Alcohol induced acute pancreatitis without necrosis or infection (principal); K70.10 Alcoholic hepatitis without ascites; E87.6 Hypokalemia; J45.909 Unspecified asthma, uncomplicated; F31.9 Bipolar disorder, unspecified; F17.210 Nicotine dependence, cigarettes, uncomplicated; F10.20 Alcohol dependence, uncomplicated; F11.90 Opioid use, unspecified, uncomplicated
CPT/HCPCS: 36415; 74022; 74177; 80048; 80053; 81001; 83690; 84703; 85025; 85027; G0378; J1170; J1650; J1885; J2060; J2270; J2405; J2543; J3010; J3480; J7030; Q9967

== ENCOUNTER 2019-02-14 14:28 | Inpatient (IN) | payer MEDICAID ==
[2019-02-14] MEDS ORDERED: SUBLIMAZE IV ONE (14:45)
[2019-02-14] MEDS ORDERED: ZOFRAN IV ONE (14:45)
[2019-02-14] MEDS ORDERED: ZOFRAN ONE (14:46)
[2019-02-14] MEDS ORDERED: SUBLIMAZE ONE (14:47)
[2019-02-14 15:12] LABS: Basophils % (Auto) 0.3 % (0.0-1.8); Eosinophils % (Auto) 0.3 % (0.0-4.3); Hematocrit 38.9 % (30.3-42.9); Lymphocytes # (Auto) 2.3 K/mm3 (1.2-5.4); Lymphocytes % (Auto) 23.2 % (13.4-35.0); Mean Corpuscular HGB Conc 34 % (30-34); Mean Corpuscular Volume 90 fl (79-97); Monocytes # (Auto) 0.6 K/mm3 (0.0-0.8); Monocytes % (Auto) 5.6 % (0.0-7.3); Platelet Count 205 K/mm3 (140-440); Red Blood Count 4.33 M/mm3 (3.65-5.03); Red Cell Distribution Width 14.4 % (13.2-15.2)
[2019-02-14] MEDS ORDERED: DILAUDID IV ONE ×4 (15:20→17:14)
[2019-02-14] MEDS ORDERED: NACL 0.9% 1000 ML 1,000 ML IV ONE (15:25)
[2019-02-14 15:27] LABS: Alanine Aminotransferase 26 units/L (7-56); Albumin 3.8 g/dL (3.9-5); BUN/Creatinine Ratio 28; Blood Urea Nitrogen 11 mg/dL (7-17); Calcium 8.3 mg/dL (8.4-10.2); Hemolysis Index 6
--- NOTE | 2019-02-14 15:31 | Emergency Department Report ---
HPI - General Chief Complaint: Abdominal Pain Time Seen by Provider: 02/14/19 15:17 - HPI HPI: Room 2 The patient is a 48 year old female presenting with a chief complaint of abdominal pain. The patient states partially to us prior to arrival she devel oped pain in the midepigastric region. Patient states she had a similar pain last month and was diagnosed with pancreatitis. The patient states this pain feels worse. Patient admits to nausea vomiting. The patient states she had one episode of diarrhea 5 days ago before the abdominal pain began. Patient denies history of fever. Patient gives her pain score "12/10." ED Past Medical Hx - Past Medical History Hx Psychiatric Treatment: Yes (bipolar) Hx Asthma: Yes Additional medical history: pancreatitis - Surgical History Additional Surgical History: x 3. left shoulder surgery - Family History Family history: no significant - Social History Smoking Status: Current Every Day Smoker Substance Use Type: None (denies illicit drug use), Alcohol (occasional) - Medications Home Medications: Home Medications Medication Instructions Recorded Confirmed Last Taken Type ALPRAZolam [Xanax TAB] 2 mg PO BID 04/25/18 12/05/18 Unknown History Carisoprodol [Soma] 350 mg PO BID 04/25/18 12/05/18 Unknown History Oxycodone HCl/Acetaminophen 1 tab PO DAILY PRN 12/05/18 12/05/18 Unknown History [Percocet 10/325 mg] ALBUTEROL Inhaler(NF) 1 inhalation INHALATION DAILY 12/06/18 12/06/18 Unknown History Ibuprofen [Motrin] 800 mg PO Q8HR PRN #4 tablet 12/07/18 Unknown Rx Pantoprazole [Protonix] 40 mg PO QDAY #4 tablet 12/07/18 Unknown Rx ED Review of Systems ROS: Stated complaint: ABDOMINAL PAIN Other details as noted in HPI Constitutional: denies: fever Eyes: denies: eye pain ENT: denies: throat pain Respiratory: no symptoms reported Cardiovascular: denies: chest pain Endocrine: no symptoms reported Gastrointestinal: abdominal pain, nausea, vomiting, diarrhea Genitourinary: denies: dysuria Musculoskeletal: denies: back pain Neurological: denies: headache Physical Exam - Physical Exam Vital Signs: Vital Signs 02/14/19 14:38 Pulse Rate 104 H Respiratory 24 Rate Blood Pressure 170/118 [Left] O2 Sat by Pulse 100 Oximetry Physical Exam: GENERAL: The patient is well-developed well-nourished female lying on stretcher writhing in pain and tearful. [] HEENT: Normocephalic. Atraumatic. Extraocular motions are intact. Patient has moist mucous membranes. NECK: Supple. Trachea midline CHEST/LUNGS: Clear to auscultation. There is no respiratory distress noted. HEART/CARDIOVASCULAR: Regular. There is no tachycardia. There is no gallop rub or murmur. ABDOMEN: Abdomen is soft, with tenderness to palpation in the midepigastric region. Patient has normal bowel sounds. There is no abdominal distention. SKIN: There is no rash. There is no edema. There is no diaphoresis. NEURO: The patient is awake, alert, and oriented. The patient is cooperative. The patient has normal speech MUSCULOSKELETAL: There is no evidence of acute injury. ED Course Vital Signs 02/14/19 14:38 Pulse Rate 104 H Respiratory 24 Rate Blood Pressure 170/118 [Left] O2 Sat by Pulse 100 Oximetry - Reevaluation(s) Reevaluation #1: 02/14/19 15:31 Patient improved after pain medication ED Medical Decision Making - Lab Data Result diagrams: 02/14/19 14:42 02/14/19 14:42 Laboratory Tests 02/14/19 02/14/19 02/14/19 14:42 14:42 14:42 WBC 9.8 RBC 4.33 Hgb 13.0 Hct 38.9 MCV 90 MCH 30 MCHC 34 RDW 14.4 Plt Count 205 Lymph % (Auto) 23.2 [place] % (Auto) 5.6 Eos % (Auto) 0.3 Baso % (Auto) 0.3 Lymph # 2.3 [place] # 0.6 Eos # 0.0 Baso # 0.0 Seg Neutrophils % 70.6 H Seg Neutrophils # 6.9 Sodium 142 Potassium 3.4 L Chloride 107.2 H Carbon Dioxide 18 L Anion Gap 20 BUN 11 Creatinine 0.4 L Estimated GFR > 60 BUN/Creatinine Ratio 28 Glucose 125 H Calcium 8.3 L Total Bilirubin 0.30 AST 33 ALT 26 Alkaline Phosphatase 59 Total Protein 6.7 Albumin 3.8 L Albumin/Globulin Ratio 1.3 Lipase 377 H - Differential Diagnosis acute pancreatitis, peptic ulcer disease, gastritis Critical care attestation.: If time is entered above; I have spent that time in minutes in the direct care of this critically ill patient, excluding procedure time. ED Disposition Clinical Impression: Acute abdominal pain, Acute pancreatitis Disposition: OP ADMIT IP TO THIS HOSP Is pt being admited?: Yes Does the pt Need Aspirin: No Condition: Fair Instructions: Abdominal Pain (ED) Time of Disposition: 16:09 (hospitalist paged (Dr Lau))
[2019-02-14 17:36] LABS: Bilirubin,Urine NEG (Negative); Blood,Urine SM (Negative); Color,Urine Yellow (Yellow); Mucus,Urine FEW /HPF; Protein,Urine <15 mg/dL mg/dL (Negative); Urobilinogen,Urine < 2.0 mg/dL (<2.0)
[2019-02-14] MEDS ORDERED: DILAUDID IV PRN (19:13)
--- NOTE | 2019-02-14 19:13 | History and Physical Report ---
History of Present Illness Date of examination: 02/14/19 Date of admission: 02/14/19 16:11 Chief complaint: Severe abdominal pain for the last 4 hours History of present illness: 48-year-old female with history of asthma, chronic pain , GERD and recurrent pancreatitis comes in for severe epigastric pain of 4 hours duration. Pain is 10 on scale of 1-10. Sharp in nature. No exacerbating or relieving factors. Patient was diagnosed with acute pancreatitis 1 month ago. Patient apparently vomited twice and has nausea. She had 1 episode of loose bowel movement 5 days ago. No fever or chills. No recent travel. No chest pain. No shortness of breath. Past Medical History Psychiatric Treatment: Yes (bipolar) Asthma: Yes Additional medical history: pancreatitis Surgical History Additional Surgical History: x 3. left shoulder surgery Family History Family history: no significant Social History Smoking Status: Current Every Day Smoker Substance Use Type: None (denies illicit drug use), Alcohol (occasional) Medications Home Medications: Home Medications Medication Instructions Recorded Confirmed Last Taken Type ALPRAZolam [Xanax TAB] 2 mg PO BID 04/25/18 12/05/18 Unknown History Carisoprodol [Soma] 350 mg PO BID 04/25/18 12/05/18 Unknown History Oxycodone HCl/Acetaminophen 1 tab PO DAILY PRN 12/05/18 12/05/18 Unknown History [Percocet 10/325 mg] ALBUTEROL Inhaler(NF) 1 inhalation INHALATION DAILY 12/06/18 12/06/18 Unknown History Ibuprofen [Motrin] 800 mg PO Q8HR PRN #4 tablet 12/07/18 Unknown Rx Pantoprazole [Protonix] 40 mg PO QDAY #4 tablet 12/07/18 Unknown Rx Review of Systems ROS: Stated complaint: ABDOMINAL PAIN Other details as noted in HPI Constitutional: denies: fever Eyes: denies: eye pain ENT: denies: throat pain Respiratory: no symptoms reported Cardiovascular: denies: chest pain Endocrine: no symptoms reported Gastrointestinal: abdominal pain, nausea, vomiting, diarrhea Genitourinary: denies: dysuria Musculoskeletal: denies: back pain Neurological: denies: headache Was the [place] this is 14 this is related to this I guess vessel is is Walker is COPD is a Medications and Allergies Allergies Allergy/AdvReac Type Severity Reaction Status Date / Time No Known Allergies Allergy Unverified 12/30/14 00:27 Home Medications Medication Instructions Recorded Confirmed Last Taken Type ALPRAZolam [Xanax TAB] 2 mg PO BID 04/25/18 12/05/18 Unknown History Carisoprodol [Soma] 350 mg PO BID 04/25/18 12/05/18 Unknown History Oxycodone HCl/Acetaminophen 1 tab PO DAILY PRN 12/05/18 12/05/18 Unknown History [Percocet 10/325 mg] ALBUTEROL Inhaler(NF) 1 inhalation INHALATION DAILY 12/06/18 12/06/18 Unknown History Ibuprofen [Motrin] 800 mg PO Q8HR PRN #4 tablet 12/07/18 Unknown Rx Pantoprazole [Protonix] 40 mg PO QDAY #4 tablet 12/07/18 Unknown Rx Exam - Constitutional Vitals: Temp Pulse Resp BP Pulse Ox 88 20 147/106 96 02/14/19 18:00 02/14/19 18:00 02/14/19 18:00 02/14/19 18:00 General appearance: Present: severe distress, well-nourished - EENT Eyes: Present: PERRL ENT: hearing intact, clear oral mucosa - Neck Neck: Present: supple, normal ROM - Respiratory Respiratory effort: normal Respiratory: bilateral: CTA - Cardiovascular Heart rate: 78 Rhythm: regular Heart Sounds: Present: S1 & S2. Absent: rub, click - Extremities Extremities: no ischemia, pulses intact, pulses symmetrical, No edema Peripheral Pulses: within normal limits - Abdominal General gastrointestinal: Present: soft, non-tender, non-distended, normal bowel sounds Localized gastrointestinal: tender: epigastric periumbilical, guarding: epigastric periumbilical, rebound: epigastric periumbilical Female genitourinary: Present: normal - Rectal Rectal Exam: deferred - Integumentary Integumentary: Present: clear, warm, dry - Musculoskeletal Musculoskeletal: gait normal, strength equal bilaterally - Psychiatric Psychiatric: appropriate mood/affect, intact judgment & insight - Neurologic Neurologic: CNII-XII intact, moves all extremities - Allied Health Allied health notes reviewed: nursing, case management Results - Labs CBC & Chem 7: 02/14/19 14:42 02/14/19 14:42 Labs: Laboratory Last Values WBC 9.8 K/mm3 (4.5-11.0) 02/14/19 14:42 RBC 4.33 M/mm3 (3.65-5.03) 02/14/19 14:42 Hgb 13.0 gm/dl (10.1-14.3) 02/14/19 14:42 Hct 38.9 % (30.3-42.9) 02/14/19 14:42 MCV 90 fl (79-97) 02/14/19 14:42 MCH 30 pg (28-32) 02/14/19 14:42 MCHC 34 % (30-34) 02/14/19 14:42 RDW 14.4 % (13.2-15.2) 02/14/19 14:42 Plt Count 205 K/mm3 (140-440) 02/14/19 14:42 Lymph % (Auto) 23.2 % (13.4-35.0) 02/14/19 14:42 [place] % (Auto) 5.6 % (0.0-7.3) 02/14/19 14:42 Eos % (Auto) 0.3 % (0.0-4.3) 02/14/19 14:42 Baso % (Auto) 0.3 % (0.0-1.8) 02/14/19 14:42 Lymph # 2.3 K/mm3 (1.2-5.4) 02/14/19 14:42 [place] # 0.6 K/mm3 (0.0-0.8) 02/14/19 14:42 Eos # 0.0 K/mm3 (0.0-0.4) 02/14/19 14:42 Baso # 0.0 K/mm3 (0.0-0.1) 02/14/19 14:42 Seg Neutrophils % 70.6 % (40.0-70.0) H 02/14/19 14:42 Seg Neutrophils # 6.9 K/mm3 (1.8-7.7) 02/14/19 14:42 Sodium 142 mmol/L (137-145) 02/14/19 14:42 Potassium 3.4 mmol/L (3.6-5.0) L 02/14/19 14:42 Chloride 107.2 mmol/L (98-107) H 02/14/19 14:42 Carbon Dioxide 18 mmol/L (22-30) L 02/14/19 14:42 20 mmol/L 02/14/19 14:42 BUN 11 mg/dL (7-17) 02/14/19 14:42 0.4 mg/dL (0.7-1.2) L 02/14/19 14:42 Estimated GFR > 60 ml/min 02/14/19 14:42 28 % 02/14/19 14:42 Glucose 125 mg/dL (65-100) H 02/14/19 14:42 Calcium 8.3 mg/dL (8.4-10.2) L 02/14/19 14:42 0.30 mg/dL (0.1-1.2) 02/14/19 14:42 AST 33 units/L (5-40) 02/14/19 14:42 ALT 26 units/L (7-56) 02/14/19 14:42 59 units/L (35-129) 02/14/19 14:42 6.7 g/dL (6.3-8.2) 02/14/19 14:42 3.8 g/dL (3.9-5) L 02/14/19 14:42 1.3 % 02/14/19 14:42 377 units/L (13-60) H 02/14/19 14:42 Yellow (Yellow) 02/14/19 17:18 Clear (Clear) 02/14/19 17:18 5.0 (5.0-7.0) 02/14/19 17:18 Ur Specific [place] 1.020 (1.003-1.030) 02/14/19 17:18 <15 mg/dl mg/dL (Negative) 02/14/19 17:18 Neg mg/dL (Negative) 02/14/19 17:18 20 mg/dL (Negative) 02/14/19 17:18 Sm (Negative) 02/14/19 17:18 Neg (Negative) 02/14/19 17:18 Neg (Negative) 02/14/19 17:18 < 2.0 mg/dL (<2.0) 02/14/19 17:18 Ur Leukocyte Esterase Neg (Negative) 02/14/19 17:18 1.0 /HPF (0.0-6.0) 02/14/19 17:18 1.0 /HPF (0.0-6.0) 02/14/19 17:18 U Epithel Cells (Auto) < 1.0 /HPF (0-13.0) 02/14/19 17:18 Few /HPF 02/14/19 17:18 - Imaging and Cardiology CT scan - abdomen: report reviewed (pending) Assessment and Plan Advance Directives: Yes (full code) VTE prophylaxis?: Chemical Plan of care discussed with patient/family: Yes - Patient Problems (1) Acute pancreatitis Current Visit: Yes Status: Acute Qualifiers: Pancreatitis type: unspecified pancreatitis type Plan to address problem: We will keep the patient nothing by mouth IV fluids Pain control Check amylase and lipase in a.m. CT abdomen pending (2) Dehydration Current Visit: No Status: Acute Plan to address problem: IV fluids for now (3) Hypokalemia Current Visit: No Status: Acute Plan to address problem: Supplemented (4) Asthma Current Visit: Yes Status: Inactive Qualifiers: Asthma complication type: unspecified Plan to address problem: Albuterol when necessary (5) Generalized anxiety disorder Current Visit: Yes Status: Chronic Plan to address problem: Continue alprazolam (6) GERD (gastroesophageal reflux disease) Current Visit: Yes Status: Chronic Qualifiers: Esophagitis presence: with esophagitis Qualified Code(s): K21.0 - Gastro- esophageal reflux disease with esophagitis Plan to address problem: Continue Protonix (7) Chronic pain Current Visit: Yes Status: Chronic Qualifiers: Chronic pain type: other chronic pain Qualified Code(s): G89.29 - Other chronic pain Plan to address problem: Patient is nothing by mouth Will resume oxycodone when she can take by mouth Will hold off till then (8) DVT prophylaxis Current Visit: No Status: Acute Plan to address problem: Lovenox 40 subcutaneous daily and GI prophylaxis
[2019-02-14] MEDS ORDERED: TYLENOL PO PRN (19:38)
[2019-02-14] MEDS ORDERED: ALBUTEROL INHALATION SCH (19:45)
[2019-02-14] MEDS: DILAUDID IV PRN ×2 (19:51→22:40)
[2019-02-14] MEDS: ZOFRAN IV PRN (19:53)
[2019-02-14] MEDS ORDERED: CALCIUM GLUCONATE 2,000 MG in NACL 0.9% 100 ML IV ONE (20:31)
[2019-02-14] MEDS: MORPHINE IV PRN (20:51)
[2019-02-14] MEDS: D5NS 1,000 ML IV SCH (21:01)
--- NOTE | 2019-02-14 22:11 | Cat Scan Report ---
PROCEDURE: CT ABDOMEN PELVIS WO CON TECHNIQUE: Computerized axial tomography of the abdomen and pelvis was performed after the IV inject ion of iodinated nonionic contrast. CT DOSE LENGTH PRODUCT: 616.3 mGycm HISTORY: severe epigastric pain-rule out pancreatitis COMPARISONS: None . FINDINGS: Liver, spleen, adrenal glands are unremarkable. 2 to 3 mm nonobstructive calculi are noted in the lef t kidney. Right Kidney is normal density without calculi or hydronephrosis Mild degree of free fluid is noted pelvic cavity. There is no free air. Gallbladder is unremarkable. Small bowel loops are with in normal. There is thickening of Gerota's fascia. Moderate degree peripancreatic fat induration is i dentified with ill-defined pancreatic outlines. A focal fluid collection is not identified. Vertebral height is normal. IMPRESSION: Findings are consistent with acute pancreatitis with interval progression. Focal fluid collection is not identified. Mild degree of ascites. Nonobstructing left renal calculi This document is electronically signed by Tani Castillo MD., Feb 14 2019 10:08:59 PM ET
[2019-02-14] MEDS: PROTONIX IV SCH (22:43)
[2019-02-14] MEDS: KCL 10MEQ/100ML 10 MEQ/100 ML BAG IV SCH (22:46)
[2019-02-14] MEDS: ATIVAN IV PRN (23:36)
[2019-02-15] MEDS: SODIUM CHLORIDE FLUSH SYRINGE 10 ML IV SCH ×3 (00:14→23:50)
[2019-02-15] MEDS: DILAUDID IV PRN ×8 (01:42→23:43)
[2019-02-15] MEDS: ZOFRAN IV PRN ×2 (01:47→06:10)
[2019-02-15] MEDS: KCL 10MEQ/100ML 10 MEQ/100 ML BAG IV SCH ×5 (01:51→17:45)
[2019-02-15] MEDS: MORPHINE IV PRN (03:31)
[2019-02-15] MEDS: ATIVAN IV PRN ×2 (06:06→14:55)
[2019-02-15] MEDS: D5NS 1,000 ML IV SCH ×2 (06:17→17:47)
[2019-02-15 07:35] LABS: Basophils % (Auto) 0.5 % (0.0-1.8); Eosinophils % (Auto) 0.1 % (0.0-4.3); Hemoglobin 14.2 gm/dl (10.1-14.3); Lymphocytes # (Auto) 1.2 K/mm3 (1.2-5.4); Lymphocytes % (Auto) 14.6 % (13.4-35.0); Mean Corpuscular HGB Conc 33 % (30-34); Mean Corpuscular Volume 91 fl (79-97); Monocytes # (Auto) 0.7 K/mm3 (0.0-0.8); Monocytes % (Auto) 7.9 % (0.0-7.3); Platelet Count 203 K/mm3 (140-440); Red Blood Count 4.74 M/mm3 (3.65-5.03); Red Cell Distribution Width 14.7 % (13.2-15.2)
[2019-02-15 08:03] LABS: Alanine Aminotransferase 19 units/L (7-56); Albumin 3.4 g/dL (3.9-5); BUN/Creatinine Ratio 13; Blood Urea Nitrogen 5 mg/dL (7-17); Calcium 7.9 mg/dL (8.4-10.2); Hemolysis Index 5
[2019-02-15] MEDS: PROVENTIL IH SCH ×2 (08:18→12:31)
[2019-02-15] MEDS ORDERED: NORMODYNE IV PRN (12:04)
[2019-02-15] MEDS: PROTONIX IV SCH ×2 (12:06→22:54)
--- NOTE | 2019-02-15 13:00 | Progress Note ---
Assessment and Plan Assessment and plan: 1) Acute pancreatitis We will keep the patient nothing by mouth IV fluids Pain control elevated lipase CT abdomen suggestive of pancreatitis (2) Dehydration - Continue IV fluids (3) Hypokalemia - Repleted (4) Asthma Albuterol when necessary (5) Generalized anxiety disorder Continue alprazolam (6) GERD (gastroesophageal reflux disease) Continue Protonix (7) Chronic pain Patient is nothing by mouth Will resume oxycodone when she can take by mouth Will hold off till then Hypertension - On clonidine patch and IV atenolol as needed (8) DVT prophylaxis Lovenox 40 subcutaneous daily and GI prophylaxis History Interval history: Patient was seen and evaluated this morning, patient is complaining pain. She said she need more pain medicine. Patient was sleepy when I talked to her. Hospitalist Physical - Physical exam Narrative exam: Not in cardiopulmonary distress. The patient appeared well nourished and normally developed. Vital signs as documented. Head exam is unremarkable. No scleral icterus . Neck is without jugular venous distension, thyromegaly, or carotid bruits. Lungs are clear to auscultation. Cardiac exam reveals regular rate and Rhythm. First and second heart sounds normal. No murmurs, rubs or gallops. Abdominal exam reveals normal bowel sounds, no masses, no organomegaly and no aortic enlargement. Extremities are nonedematous and both femoral and pedal pulses are normal. 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 - Constitutional Vitals: Temp Pulse Resp BP Pulse Ox 97.6 F 92 H 18 175/119 96 02/15/19 05:39 02/15/19 08:40 02/15/19 08:40 02/15/19 05:39 02/15/19 05:39 General appearance: Present: severe distress, well-nourished Results - Labs CBC & Chem 7: 02/15/19 06:59 02/15/19 06:59 Labs: Laboratory Last Values WBC 8.3 K/mm3 (4.5-11.0) 02/15/19 06:59 RBC 4.74 M/mm3 (3.65-5.03) 02/15/19 06:59 Hgb 14.2 gm/dl (10.1-14.3) 02/15/19 06:59 Hct 43.0 % (30.3-42.9) H 02/15/19 06:59 MCV 91 fl (79-97) 02/15/19 06:59 MCH 30 pg (28-32) 02/15/19 06:59 MCHC 33 % (30-34) 02/15/19 06:59 RDW 14.7 % (13.2-15.2) 02/15/19 06:59 Plt Count 203 K/mm3 (140-440) 02/15/19 06:59 Lymph % (Auto) 14.6 % (13.4-35.0) 02/15/19 06:59 [place] % (Auto) 7.9 % (0.0-7.3) H 02/15/19 06:59 Eos % (Auto) 0.1 % (0.0-4.3) 02/15/19 06:59 Baso % (Auto) 0.5 % (0.0-1.8) 02/15/19 06:59 Lymph # 1.2 K/mm3 (1.2-5.4) 02/15/19 06:59 [place] # 0.7 K/mm3 (0.0-0.8) 02/15/19 06:59 Eos # 0.0 K/mm3 (0.0-0.4) 02/15/19 06:59 Baso # 0.0 K/mm3 (0.0-0.1) 02/15/19 06:59 Seg Neutrophils % 76.9 % (40.0-70.0) H 02/15/19 06:59 Seg Neutrophils # 6.4 K/mm3 (1.8-7.7) 02/15/19 06:59 Sodium 140 mmol/L (137-145) 02/15/19 06:59 Potassium 3.5 mmol/L (3.6-5.0) L 02/15/19 06:59 Chloride 108.1 mmol/L (98-107) H 02/15/19 06:59 Carbon Dioxide 21 mmol/L (22-30) L 02/15/19 06:59 14 mmol/L 02/15/19 06:59 BUN 5 mg/dL (7-17) L 02/15/19 06:59 0.4 mg/dL (0.7-1.2) L 02/15/19 06:59 Estimated GFR > 60 ml/min 02/15/19 06:59 13 % 02/15/19 06:59 Glucose 175 mg/dL (65-100) H 02/15/19 06:59 5.4 % (4-6) 02/14/19 19:59 Calcium 7.9 mg/dL (8.4-10.2) L 02/15/19 06:59 0.60 mg/dL (0.1-1.2) 02/15/19 06:59 AST 20 units/L (5-40) 02/15/19 06:59 ALT 19 units/L (7-56) 02/15/19 06:59 54 units/L (35-129) 02/15/19 06:59 6.4 g/dL (6.3-8.2) 02/15/19 06:59 3.4 g/dL (3.9-5) L 02/15/19 06:59 1.1 % 02/15/19 06:59 Amylase 239 units/L (27-131) H 02/14/19 19:59 377 units/L (13-60) H 02/14/19 14:42 Yellow (Yellow) 02/14/19 17:18 Clear (Clear) 02/14/19 17:18 5.0 (5.0-7.0) 02/14/19 17:18 Ur Specific [place] 1.020 (1.003-1.030) 02/14/19 17:18 <15 mg/dl mg/dL (Negative) 02/14/19 17:18 Neg mg/dL (Negative) 02/14/19 17:18 20 mg/dL (Negative) 02/14/19 17:18 Sm (Negative) 02/14/19 17:18 Neg (Negative) 02/14/19 17:18 Neg (Negative) 02/14/19 17:18 < 2.0 mg/dL (<2.0) 02/14/19 17:18 Ur Leukocyte Esterase Neg (Negative) 02/14/19 17:18 1.0 /HPF (0.0-6.0) 02/14/19 17:18 1.0 /HPF (0.0-6.0) 02/14/19 17:18 U Epithel Cells (Auto) < 1.0 /HPF (0-13.0) 02/14/19 17:18 Few /HPF 02/14/19 17:18 Active Medications - Current Medications Current Medications: Generic Name Dose Route Start Last Admin Trade Name Freq PRN Reason Stop Dose Admin Acetaminophen 650 mg 02/14/19 19:38 Tylenol PO Q4H PRN Pain MILD(1-3)/Fever >100.5/RAMOS Albuterol 2.5 mg 02/15/19 10:00 02/15/19 12:31 Proventil IH Not Given DAILY DOLORES Clonidine HCl 0.2 mg 02/15/19 14:00 Catapres-Tts Patch TD QWEEK DOLORES Hydromorphone HCl 1 mg 02/14/19 19:39 02/15/19 12:06 Dilaudid IV 1 mg Q3H PRN Administration Pain , Severe (7-10) Dextrose/Sodium Chloride 1,000 mls @ 100 mls/hr 02/14/19 20:00 02/15/19 06:17 D5ns IV 100 mls/hr DIRECT DOLORES Administration Labetalol HCl 10 mg 02/15/19 12:04 Normodyne IV Q4H PRN Hypertension Lorazepam 0.5 mg 02/14/19 23:07 02/15/19 06:06 Ativan IV 0.5 mg Q4H PRN Administration Anxiety Ondansetron HCl 4 mg 02/14/19 19:38 02/15/19 06:10 Zofran IV 4 mg Q3H PRN Administration Nausea And Vomiting Pantoprazole Sodium 40 mg 02/14/19 22:00 02/15/19 12:06 Protonix IV 40 mg BID DOLORES Administration Sodium Chloride 10 ml 02/14/19 22:00 02/15/19 00:14 Sodium Chloride Flush Syringe 10 Ml IV 10 ml BID DOLORES Administration Sodium Chloride 10 ml 02/14/19 19:38 Sodium Chloride Flush Syringe 10 Ml IV PRN PRN LINE FLUSH
[2019-02-15] MEDS ORDERED: CATAPRES-TTS PATCH TD SCH (14:00)
[2019-02-16] MEDS: DILAUDID IV PRN ×8 (02:20→21:58)
[2019-02-16 05:52] LABS: Basophils % (Auto) 0.2 % (0.0-1.8); Eosinophils # (Auto) 0.1 K/mm3 (0.0-0.4); Eosinophils % (Auto) 1.7 % (0.0-4.3); Hematocrit 37.9 % (30.3-42.9); Hemoglobin 12.5 gm/dl (10.1-14.3); Lymphocytes # (Auto) 1.4 K/mm3 (1.2-5.4); Lymphocytes % (Auto) 22.7 % (13.4-35.0); Mean Corpuscular HGB Conc 33 % (30-34); Mean Corpuscular Volume 89 fl (79-97); Monocytes # (Auto) 0.5 K/mm3 (0.0-0.8); Monocytes % (Auto) 8.3 % (0.0-7.3); Platelet Count 190 K/mm3 (140-440); Red Blood Count 4.25 M/mm3 (3.65-5.03); Red Cell Distribution Width 14.6 % (13.2-15.2)
[2019-02-16 06:01] LABS: BUN/Creatinine Ratio 5; Blood Urea Nitrogen 2 mg/dL (7-17); Calcium 7.8 mg/dL (8.4-10.2); Hemolysis Index 30
[2019-02-16] MEDS: PROVENTIL IH SCH (07:48)
[2019-02-16] MEDS: D5NS 1,000 ML IV SCH ×2 (08:46→18:48)
[2019-02-16] MEDS ORDERED: K-DUR PO ONE (09:00)
[2019-02-16] MEDS: HABITROL TD SCH (09:56)
[2019-02-16] MEDS: PROTONIX PO SCH ×2 (10:00→22:00)
[2019-02-16] MEDS: NORVASC PO SCH (10:01)
[2019-02-16] MEDS: SODIUM CHLORIDE FLUSH SYRINGE 10 ML IV SCH ×2 (10:01→22:00)
--- NOTE | 2019-02-16 11:49 | Progress Note ---
Assessment and Plan Assessment and plan: 48-year-old female with history of asthma, chronic pain , GERD and recurrent pancreatitis comes in for severe epigastric pain of 4 hours duration. Pain is 10 on scale of 1-10. Sharp in nature. No exacerbating or relieving factors. Patient was diagnosed with acute pancreatitis 1 month ago. Patient apparently vomited twice and has nausea. 1) Acute pancreatitis We will keep the patient nothing by mouth IV fluids Pain control elevated lipase CT abdomen suggestive of pancreatitis (2) Dehydration - Continue IV fluids (3) Hypokalemia - Repleted (4) Asthma Albuterol when necessary (5) Generalized anxiety disorder Continue alprazolam (6) GERD (gastroesophageal reflux disease) Continue Protonix (7) Chronic pain Patient is nothing by mouth Will resume oxycodone when she can take by mouth Will hold off till then Hypertension - On clonidine patch and IV atenolol as needed (8) DVT prophylaxis Lovenox 40 subcutaneous daily and GI prophylaxis History Interval history: Patient was seen and evaluated this morning, patient was complaining severe pain. Hospitalist Physical - Physical exam Narrative exam: Not in cardiopulmonary distress. The patient appeared well nourished and normally developed. Vital signs as documented. Head exam is unremarkable. No scleral icterus . Neck is without jugular venous distension, thyromegaly, or carotid bruits. Lungs are clear to auscultation. Cardiac exam reveals regular rate and Rhythm. Abdominal exam reveals. Extremities are nonedematous and both femoral and pedal pulses are normal. 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 - Constitutional Vitals: Temp Pulse Resp BP Pulse Ox 98.6 F 86 16 125/88 100 02/15/19 22:54 02/16/19 07:56 02/16/19 07:56 02/16/19 10:01 02/15/19 17:54 General appearance: Present: severe distress, well-nourished Results - Labs CBC & Chem 7: 02/16/19 05:28 02/16/19 05:28 Labs: Laboratory Last Values WBC 6.1 K/mm3 (4.5-11.0) 02/16/19 05:28 RBC 4.25 M/mm3 (3.65-5.03) 02/16/19 05:28 Hgb 12.5 gm/dl (10.1-14.3) 02/16/19 05:28 Hct 37.9 % (30.3-42.9) 02/16/19 05:28 MCV 89 fl (79-97) 02/16/19 05:28 MCH 30 pg (28-32) 02/16/19 05:28 MCHC 33 % (30-34) 02/16/19 05:28 RDW 14.6 % (13.2-15.2) 02/16/19 05:28 Plt Count 190 K/mm3 (140-440) 02/16/19 05:28 Lymph % (Auto) 22.7 % (13.4-35.0) 02/16/19 05:28 [place] % (Auto) 8.3 % (0.0-7.3) H 02/16/19 05:28 Eos % (Auto) 1.7 % (0.0-4.3) 02/16/19 05:28 Baso % (Auto) 0.2 % (0.0-1.8) 02/16/19 05:28 Lymph # 1.4 K/mm3 (1.2-5.4) 02/16/19 05:28 [place] # 0.5 K/mm3 (0.0-0.8) 02/16/19 05:28 Eos # 0.1 K/mm3 (0.0-0.4) 02/16/19 05:28 Baso # 0.0 K/mm3 (0.0-0.1) 02/16/19 05:28 Seg Neutrophils % 67.1 % (40.0-70.0) 02/16/19 05:28 Seg Neutrophils # 4.1 K/mm3 (1.8-7.7) 02/16/19 05:28 Sodium 140 mmol/L (137-145) 02/16/19 05:28 Potassium 3.5 mmol/L (3.6-5.0) L 02/16/19 05:28 Chloride 107.2 mmol/L (98-107) H 02/16/19 05:28 Carbon Dioxide 23 mmol/L (22-30) 02/16/19 05:28 13 mmol/L 02/16/19 05:28 BUN 2 mg/dL (7-17) L 02/16/19 05:28 0.4 mg/dL (0.7-1.2) L 02/16/19 05:28 Estimated GFR > 60 ml/min 02/16/19 05:28 5 % 02/16/19 05:28 Glucose 139 mg/dL (65-100) H 02/16/19 05:28 5.4 % (4-6) 02/14/19 19:59 Calcium 7.8 mg/dL (8.4-10.2) L 02/16/19 05:28 0.60 mg/dL (0.1-1.2) 02/15/19 06:59 AST 20 units/L (5-40) 02/15/19 06:59 ALT 19 units/L (7-56) 02/15/19 06:59 54 units/L (35-129) 02/15/19 06:59 6.4 g/dL (6.3-8.2) 02/15/19 06:59 3.4 g/dL (3.9-5) L 02/15/19 06:59 1.1 % 02/15/19 06:59 Amylase 239 units/L (27-131) H 02/14/19 19:59 377 units/L (13-60) H 02/14/19 14:42 Yellow (Yellow) 02/14/19 17:18 Clear (Clear) 02/14/19 17:18 5.0 (5.0-7.0) 02/14/19 17:18 Ur Specific [place] 1.020 (1.003-1.030) 02/14/19 17:18 <15 mg/dl mg/dL (Negative) 02/14/19 17:18 Neg mg/dL (Negative) 02/14/19 17:18 20 mg/dL (Negative) 02/14/19 17:18 Sm (Negative) 02/14/19 17:18 Neg (Negative) 02/14/19 17:18 Neg (Negative) 02/14/19 17:18 < 2.0 mg/dL (<2.0) 02/14/19 17:18 Ur Leukocyte Esterase Neg (Negative) 02/14/19 17:18 1.0 /HPF (0.0-6.0) 02/14/19 17:18 1.0 /HPF (0.0-6.0) 02/14/19 17:18 U Epithel Cells (Auto) < 1.0 /HPF (0-13.0) 02/14/19 17:18 Few /HPF 02/14/19 17:18 Active Medications - Current Medications Current Medications: Generic Name Dose Route Start Last Admin Trade Name Freq PRN Reason Stop Dose Admin Acetaminophen 650 mg 02/14/19 19:38 Tylenol PO Q4H PRN Pain MILD(1-3)/Fever >100.5/RAMOS Albuterol 2.5 mg 02/15/19 10:00 02/16/19 07:48 Proventil IH 2.5 mg DAILY DOLORES Administration Amlodipine Besylate 10 mg 02/16/19 10:00 02/16/19 10:01 Norvasc PO 10 mg QDAY DOLORES Administration Clonidine HCl 0.2 mg 02/15/19 14:00 02/15/19 14:53 Catapres-Tts Patch TD 0.2 mg QWEEK DOLORES Administration Hydromorphone HCl 1 mg 02/14/19 19:39 02/16/19 09:52 Dilaudid IV 1 mg Q3H PRN Administration Pain , Severe (7-10) Dextrose/Sodium Chloride 1,000 mls @ 100 mls/hr 02/14/19 20:00 02/16/19 08:46 D5ns IV 100 mls/hr DIRECT DOLORES Administration Labetalol HCl 10 mg 02/15/19 12:04 Normodyne IV Q4H PRN Hypertension Nicotine 14 mg 02/16/19 10:00 02/16/19 09:56 Habitrol TD 14 mg QDAY DOLORES Administration Ondansetron HCl 4 mg 02/14/19 19:38 02/15/19 06:10 Zofran IV 4 mg Q3H PRN Administration Nausea And Vomiting Pantoprazole Sodium 40 mg 02/16/19 10:00 02/16/19 10:00 Protonix PO 40 mg BID DOLORES Administration Sodium Chloride 10 ml 02/14/19 22:00 02/16/19 10:01 Sodium Chloride Flush Syringe 10 Ml IV 10 ml BID DOLORES Administration Sodium Chloride 10 ml 02/14/19 19:38 Sodium Chloride Flush Syringe 10 Ml IV PRN PRN LINE FLUSH Nutrition/Malnutrition Assess - Dietary Evaluation Nutrition/Malnutrition Findings: Nutrition Notes Start: 02/15/19 17:20 Freq: Status: Active Protocol: Document 02/15/19 17:20 NHJERRELL (Rec: 02/15/19 17:25 [facility] [id number]) Nutrition Notes Need for Assessment generated from: regulatory lead,MST Initial or Follow up Assessment Other Pertinent Diagnosis Acute pancreatitis, dehydration, chronic pain, GERD, bipolar D/O, EGUENE Current Diet NPO Labs/Tests K 3.5 BG 175 Amylase 239 Lipase 377 Pertinent Medications D5 NS at 100ml/hr Height 5 ft 2 in Weight 59 kg Usual Body Weight 75 kg [place] Body Weight (kg) 50.00 BMI 23.8 Intake Prior to Admission Poor Weight change and time frame Pt reports intentional 21.2% wt loss over the past yr Weight Status Appropriate Subjective/Other Information Pt screened for malnutrition risk (wt loss and poor appetite). Burn Absent Trauma Absent GI Symptoms Nausea,Vomiting Food Allergy No #1 Nutrition Diagnosis Altered GI function Etiology pancreatitis As Evidenced by Signs and Symptoms pt NPO Is patient on ventilator? No Is Patient Ambulatory and/or Out of Bed Yes [facility] [ 1538.225 [id number]] Calculation Used for Recommendations Barron-St Jeor Additional Notes Pro needs 0.8-1g/k-59g/ day Fluid needs 1ml/kcal Nutrition Intervention Change Diet Order: Advance diet when medically feasible Goal #1 Diet advancement to meet nutrient needs Anticipated Discharge Needs: Unable to identify at this time Follow-Up By: 02/19/19 Additional Comments F/U: diet advancement
--- NOTE | 2019-02-16 14:40 | Discharge Summary ---
Providers - Providers Date of Admission: 02/14/19 16:11 Attending physician: BRITNI STARK MD Primary care physician: GRUPO BURCIAGA Hospitalization Condition: Fair Disposition: DC-07 LEFT AGAINST MED ADVICE Time spent for discharge: 35 minutes - Discharge Diagnoses (1) Acute pancreatitis Status: Acute Qualifiers: Pancreatitis type: unspecified pancreatitis type (2) Generalized anxiety disorder Status: Chronic (3) Alcohol abuse Status: Acute Core Measure Documentation - Palliative Care Palliative Care/ Comfort Measures: Not Applicable - Core Measures Any of the following diagnoses?: none Exam - Physical Exam Narrative exam: Not in cardiopulmonary distress. The patient appeared well nourished and normally developed. Vital signs as documented. Head exam is unremarkable. No scleral icterus . Neck is without jugular venous distension, thyromegaly, or carotid bruits. Lungs are clear to auscultation. Cardiac exam reveals regular rate and Rhythm. Abdominal exam reveals. Extremities are nonedematous and both femoral and pedal pulses are normal. 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 - Constitutional Vitals: Temp Pulse Resp BP Pulse Ox 98.4 F 86 14 139/102 100 02/16/19 11:50 02/16/19 07:56 02/16/19 11:50 02/16/19 11:50 02/16/19 11:50 Plan Activity: no restrictions Weight Bearing Status: Full Weight Bearing Diet: advance as tolerated Follow up with: OZZY MCKNIGHT MD [Referring] - 3-5 Days
[2019-02-17] MEDS: DILAUDID IV PRN ×4 (00:41→10:33)
[2019-02-17] MEDS: SODIUM CHLORIDE FLUSH SYRINGE 10 ML IV PRN ×2 (00:42→04:38)
[2019-02-17] MEDS: PROVENTIL IH SCH ×3 (03:10→10:18)
[2019-02-17] MEDS: D5NS 1,000 ML IV SCH (04:41)
[2019-02-17] MEDS: NORVASC PO SCH (10:23)
[2019-02-17] MEDS: HABITROL TD SCH (10:23)
[2019-02-17] MEDS: PROTONIX PO SCH (10:23)
[2019-02-17] MEDS: SODIUM CHLORIDE FLUSH SYRINGE 10 ML IV SCH (10:29)
--- NOTE | 2019-02-17 12:44 | Discharge Summary ---
Providers - Providers Date of Admission: 02/14/19 16:11 Attending physician: DONAVAN WEINSTEIN MD Primary care physician: GRUPO BURCIAGA Hospitalization Condition: Fair Hospital course: 48-year-old female with history of asthma, chronic pain , GERD and recurrent pancreatitis comes in for severe epigastric pain of 4 hours duration. Pain is 10 on scale of 1-10. Sharp in nature. No exacerbating or relieving factors. Patient was diagnosed with acute pancreatitis 1 month ago. Patient apparently vomited twice and has nausea. 1) Acute on chronic pancreatitis She was treated with IV fluids, bowel rest and pain medicines. She improved -She displayed pain medication seeking behavior, she frequently wanted IV medications, she was counseled on the dangers of opiate addiction (2) Dehydration Treated with IV fluids (3) Hypokalemia - Repleted (4) Asthma Stable, was not in exacerbation (5) Generalized anxiety disorder Continue home alprazolam (6) GERD (gastroesophageal reflux disease) Continue Protonix (7) Chronic pain She was restarted on her home pain medications Hypertension Treated with BP meds (8) DVT prophylaxis Lovenox 40 subcutaneous daily and GI prophylaxis Disposition: DC- TO HOME OR SELFCARE Time spent for discharge: 33 mins Core Measure Documentation - Palliative Care Palliative Care/ Comfort Measures: Not Applicable - Core Measures Any of the following diagnoses?: none Exam - Constitutional Vitals: Temp Pulse Resp BP Pulse Ox 98.2 F 96 H 16 138/98 100 02/17/19 05:15 02/17/19 07:35 02/17/19 07:35 02/17/19 10:23 02/17/19 05:15 General appearance: Present: no acute distress, well-nourished - EENT Eyes: Present: PERRL ENT: hearing intact, clear oral mucosa - Neck Neck: Present: supple, normal ROM - Respiratory Respiratory effort: normal Respiratory: bilateral: CTA - Cardiovascular Heart Sounds: Present: S1 & S2. Absent: rub, click - Extremities Extremities: pulses symmetrical, No edema Peripheral Pulses: within normal limits - Abdominal General gastrointestinal: Present: soft, non-tender, non-distended, normal bowel sounds Female genitourinary: Present: normal - Integumentary Integumentary: Present: clear, warm, dry - Musculoskeletal Musculoskeletal: gait normal, strength equal bilaterally - Psychiatric Psychiatric: appropriate mood/affect, intact judgment & insight - Neurologic Neurologic: CNII-XII intact, moves all extremities Plan Follow up with: PRIMARY CARE, [Referring] - 3-5 Days Prescriptions: Nicotine [Habitrol] 14 mg TD QDAY #30 patch amLODIPine [Norvasc] 10 mg PO QDAY #30 tablet
[2019-02-17 13:30] VITALS: BP 130/92
== END 2019-02-17 13:45 | disposition home or self-care (01) | DRG 440 ==
LOC: ED 14:28 → 3A 16:11
PROVIDERS: ADMIT Internal Medicine; ATTEND Internal Medicine
DX: K85.90 Acute pancreatitis without necrosis or infection, unspecified (principal); E87.6 Hypokalemia; G89.29 Other chronic pain; F31.9 Bipolar disorder, unspecified; E86.0 Dehydration; K21.0 Gastro-esophageal reflux disease with esophagitis; I10 Essential (primary) hypertension; F10.10 Alcohol abuse, uncomplicated; Y90.9 Presence of alcohol in blood, level not specified; F17.210 Nicotine dependence, cigarettes, uncomplicated; F41.1 Generalized anxiety disorder; F17.200 Nicotine dependence, unspecified, uncomplicated; J45.909 Unspecified asthma, uncomplicated; Z79.01 Long term (current) use of anticoagulants; Z79.51 Long term (current) use of inhaled steroids; Z79.899 Other long term (current) drug therapy
CPT/HCPCS: 36415; 74176; 80048; 80053; 81001; 82150; 83036; 83690; 85025; 87116; 94640; 99406; G0378; C9113; J0610; J1170; J2060; J2270; J2405; J3010; J3480; J7030; J7042